=== PATIENT | female | born 1970 | race Caucasian/White ===

== ENCOUNTER 2017-03-27 04:54 | Emergency (ER) | payer OTHER ==
[~2017-03-27] VITALS: Ht 167.6 cm; Wt 90.9 kg
[2017-03-27 04:56] VITALS: BP 127/76; PULSE 108; TEMP 98.1
[2017-03-27] MEDS ORDERED: SINGULAIR 110 MG/TAB PO (05:33)
[2017-03-27] MEDS ORDERED: PRILOSEC10 MG PO (05:33)
[2017-03-27] MEDS ORDERED: ULTRAM 50MG TAB50 MG PO (05:41)
== END 2017-03-27 06:00 | disposition home or self-care (01) ==
LOC: COL.ER 04:54
DX: S82.831A Other fracture of upper and lower end of right fibula, initial encounter for closed fracture (principal); W01.10XA Fall on same level from slipping, tripping and stumbling with subsequent striking against unspecified object, initial encounter; Y92.414 Local residential or business street as the place of occurrence of the external cause